=== PATIENT | male | born 1985 | race Caucasian/White ===

== ENCOUNTER → 2016-06-21 | Outpatient (CLI) | payer OTHER ==
[2016-06-21 11:43] LABS: CHLORIDE,CL 105 mmol/L (98-110); SODIUM,NA 139 mmol/L (136-146)
== END | disposition home or self-care (01) ==
LOC: MW.CHFP 11:04
PROVIDERS: ATTEND Family Medicine
DX: Z00.00 Encounter for general adult medical examination without abnormal findings (principal); F90.9 Attention-deficit hyperactivity disorder, unspecified type
CPT/HCPCS: 36415; 80053; 80061; 85027

== ENCOUNTER 2017-06-14 16:04 | Emergency (ER) | payer OTHER, BC ==
[2017-06-14] MEDS ORDERED: Ketorolac 60 MG/2 ML SDV IM ONE (16:27)
--- NOTE | 2017-06-14 16:29 | EDM.PDOC ---
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 Past medical history: As per history of present illness and as reviewed below otherwise noncontributory. Surgical history: As per history of present illness and as reviewed below otherwise noncontributory. Social history: No reported history of drug or alcohol abuse. Family history: As per history of present illness and as reviewed below otherwise noncontributory. Physical exam: Alert and oriented gentleman answering questions appropriately in full sentences without any shortness of breath HEENT: Atraumatic, normocehpalic, pupils reactive, negative for conjunctival pallor or scleral icterus, mucous membranes moist, throat clear, neck supple, nontender, trachea midline. Lungs: Clear to auscultation, breath sounds equal bilaterally, chest non tender. Heart: S1S2, regular, negative for clicks, rubs, or JVD. Abdomen: Soft, nondistended, nontender. Negative for masses or hepatossplenmegaly. Negative for costovertebral tenderness. Pelvis: Stable nontender. Genitourinary: Deferred. Rectal: Deferred Extremities: traumatic, edema noted to the anterior surface at the shoulder. No pain with manipulation and palpation posterior shoulder or to the deltoid. Exquisite tenderness noted with palpation anteriorly. Pulses intact radially. negative for cords or calf pain. Patient can raise his left arm about 10 anteriorly, can raise his arm about 5 to the side. No pain posteriorly to the left shoulder Neurovascular unremarkable. Neuro: Awake, alert, oriented. Cranial nerves II through XII unremarkable. Cerebellum unremarkable. Motor and sensory unremarkable throughout. Exam nonfocal. No fractures or dislocation noted on x-rays Diagnostics: []X-ray left shoulder Therapeutics: [] Toradol IM Impression: []Injury to left shoulder Plan: []Sling to his left arm Diclofenac twice a day Follow-up with orthopedics next week Definitive disposition and diagnosis as appropriate pending reevaluation and review of above. Onset: Today, Sudden Duration: Hour(s):, Getting Worse Location: Reports: Upper Extremity, Left left shoulder Pain Score (Numeric/FACES): 8 - Related Data Allergies Allergy/AdvReac Type Severity Reaction Status Date / Time amoxicillin Allergy Cannot Verified 06/14/17 16:17 Remember Home Meds: Home Meds Amphetamine/Dextroamphetamine [Adderall] 20 mg PO BID 06/14/17 [History] Diclofenac Sodium [IJD: Diclofenac Sodium] 75 mg PO .TWICE DAILY W MEALS #20 tab.ec 06/14/17 [Rx] Past Medical History Psychiatric History: Reports: ADHD, Anxiety, Depression - Past Surgical History Musculoskeletal Surgical History: Reports: Shoulder Surgery Social & Family History - Family History Family Medical History: Noncontributory - Tobacco Use Smoking Status *Q: Current Every Day Smoker Years of Tobacco use: 15 Packs/Tins Daily: 1 Second Hand Smoke Exposure: Yes - Caffeine Use Caffeine Use: Reports: Coffee, Energy Drinks, Soda - Alcohol Use Days Per Week of Alcohol Use: 7 Number of Drinks Per Day: 3 Total Drinks Per Week: 21 - Recreational Drug Use Recreational Drug Use: No Review of Systems - Review of Systems Review Of Systems: ROS reveals no pertinent complaints other than HPI. ED EXAM, GENERAL - Physical Exam Exam: See Below (See dictation) Course - Vital Signs Last Recorded V/S: Last Vital Signs Temp 37.3 C 06/14/17 16:15 Pulse 106 H 06/14/17 16:15 Resp 18 06/14/17 16:15 BP 117/78 06/14/17 16:15 Pulse Ox 97 06/14/17 16:15 - Orders/Labs/Meds Orders: Active Orders 24 hr Category Date Time Status Cooling Warming Measures [RC] ASDIRECTED Care 06/14/17 17:24 Active Shoulder Comp Lt [CR] Stat Exams 06/14/17 16:27 Taken Ice Pack [Ice Therapy] [OM.PC] Stat Oth 06/14/17 17:24 Ordered Meds: Medications Discontinued Medications Generic Name Dose Route Start Last Admin Trade Name Freq PRN Reason Stop Dose Admin Ketorolac Tromethamine 60 mg 06/14/17 16:27 06/14/17 16:44 Toradol IM 06/14/17 16:28 60 mg ONETIME ONE Administration Departure - Departure Time of Disposition: 17:51 Disposition: Home, Self-Care 01 Condition: Good Clinical Impression: Injury of left shoulder Qualifiers: Encounter type: initial encounter Qualified Code(s): S49.92XA - Unspecified injury of left shoulder and upper arm, initial encounter - Discharge Information Prescriptions: Diclofenac Sodium [IJD: Diclofenac Sodium] 75 mg PO .TWICE DAILY W MEALS #20 tab.ec Referrals: PCP,None [Primary Care Provider] - Sonja Blount MD [Physician] - Forms: ED Department Discharge Additional Instructions: The following information is given to patients seen in the emergency department who are being discharged to home. This information is to outline your options for follow-up care. We provide all patients seen in our emergency department with a follow-up referral. The need for follow-up, as well as the timing and circumstances, are variable depending upon the specifics of your emergency department visit. If you don't have a primary care physician on staff, we will provide you with a referral. We always advise you to contact your personal physician following an emergency department visit to inform them of the circumstance of the visit and for follow-up with them and/or the need for any referrals to a consulting specialist. The emergency department will also refer you to a specialist when appropriate. This referral assures that you have the opportunity for followup care with a specialist. All of these measure are taken in an effort to provide you with optimal care, which includes your followup. Under all circumstances we always encourage you to contact your private physician who remains a resource for coordinating your care. When calling for followup care, please make the office aware that this follow-up is from your recent emergency room visit. If for any reason you are refused follow-up, please contact the [facility] emergency department at and asked to speak to the emergency department charge nurse. Diclofenac has been given for your injury Return to ER as directed Follow-up with orthopedics next week [facility] [address], [address] [place] [address] - My Orders Last 24 Hours: My Active Orders 06/14/17 16:27 Shoulder Comp Lt [CR] Stat 06/14/17 17:24 Cooling Warming Measures [RC] ASDIRECTED Ice Pack [Ice Therapy] [OM.PC] Stat - Assessment/Plan Last 24 Hours: My Active Orders 06/14/17 16:27 Shoulder Comp Lt [CR] Stat 06/14/17 17:24 Cooling Warming Measures [RC] ASDIRECTED Ice Pack [Ice Therapy] [OM.PC] Stat
[2017-06-14 18:07] VITALS: BP 153/79
--- NOTE | 2017-06-17 09:51 | CR ---
EXAM DATE: 06/14/17 PATIENT'S AGE: 31 Patient: SHAWNEE LUCIO Facility: [place], [place] Site . Site : 1985 Study: XRay Shoulder Left [id number]/20/2018 5:16:53 PM Ordering Physician: Doctor Burns Final Report: HISTORY: Shoulder pain without injury or trauma. FINDINGS: Three views of the left shoulder demonstrates maintenance of the AC joint and glenohumeral joint. No soft tissue calcification, fracture or dislocation seen. IMPRESSION: No bony abnormality within the left shoulder. Dictated by Kiley Copelnad MD @ 06/14/2017 6:02:20 PM Dictated by: Kiley Copeland MD @ 06/14/2017 18:02:25 (Electronic Signature) Report Signed by Proxy. HARI
== END 2017-06-14 18:01 | disposition home or self-care (01) ==
LOC: MW.ED 16:04
DX: S49.92XA Unspecified injury of left shoulder and upper arm, initial encounter (principal); F17.210 Nicotine dependence, cigarettes, uncomplicated; Z88.1 Allergy status to other antibiotic agents; X58.XXXA Exposure to other specified factors, initial encounter; Y99.0 Civilian activity done for income or pay
CPT/HCPCS: 73030; 96372; 99283; A4566; J1885

== ENCOUNTER 2017-09-07 01:51 | Emergency (ER) | payer SELFPAY ==
[2017-09-07] MEDS ORDERED: Lidocaine 1% with EPINEPHrine 1:100,000 10 ML MDV INJECT ONE (01:56)
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
[2017-09-07] MEDS ORDERED: Bacitracin Oint 1 GM U/D Packet TOP ONE (02:14)
[2017-09-07 02:37] VITALS: BP 128/84
== END 2017-09-07 02:35 | disposition home or self-care (01) ==
LOC: MW.ED 01:51
DX: S01.112A Laceration without foreign body of left eyelid and periocular area, initial encounter (principal); S01.21XA Laceration without foreign body of nose, initial encounter; S09.90XA Unspecified injury of head, initial encounter; Z88.1 Allergy status to other antibiotic agents; Z79.899 Other long term (current) drug therapy; Y04.2XXA Assault by strike against or bumped into by another person, initial encounter
CPT/HCPCS: 99283

== ENCOUNTER 2018-06-12 02:12 | Emergency (ER) | payer BC ==
[2018-06-12] MEDS ORDERED: Tetracaine HCl/PF 0.5% 4 ML Bottle EYELF ONE (02:32)
[2018-06-12] MEDS ORDERED: Erythromycin Base 0.5% Ophth Oint 1 GM Tube EYELF ONE (02:46)
--- NOTE | 2018-06-12 02:48 | EDM.PDOC ---
ED HPI GENERAL MEDICAL PROBLEM - General Chief Complaint: ENT Problem Stated Complaint: SOMETHING IN LT EYE Time Seen by Provider: 06/12/18 02:44 - History of Present Illness INITIAL COMMENTS - FREE TEXT/NARRATIVE: HISTORY AND PHYSICAL: History of present illness: Patient's a 32-year-old white male presents with concern of irritation in his left eye has been since tonight he felt there may been some pain in that he did flush his eye. Review of systems: As per history of present illness and below otherwise all systems reviewed and negative. Past medical history: As per history of present illness and as reviewed below otherwise noncontributory. Surgical history: As per history of present illness and as reviewed below otherwise noncontributory. Social history: No reported history of drug or alcohol abuse. Family history: As per history of present illness and as reviewed below otherwise noncontributory. Physical exam: HEENT: Atraumatic, normocephalic, pupils reactive, injected conjunctiva anterior chamber clear lid eversion informed by search was negative corneal staining negative for evidence of corneal abrasion mucous membranes moist, throat clear, neck supple, nontender, trachea midline. Lungs: Clear to auscultation, breath sounds equal bilaterally, chest nontender. Heart: S1S2, regular, negative for clicks, rubs, or JVD. Abdomen: Soft, nondistended, nontender. Negative for masses or hepatosplenomegaly. Negative for costovertebral tenderness. Pelvis: Stable nontender. Genitourinary: Deferred. Rectal: Deferred. Extremities: Atraumatic, negative for cords or calf pain. Neurovascular unremarkable. Neuro: Awake, alert, oriented. Cranial nerves II through XII unremarkable. Cerebellum unremarkable. Motor and sensory unremarkable throughout. Exam nonfocal. Diagnostics: Corneal staining Therapeutics: Proparacaine, irrigation erythromycin ophthalmic ointment Impression: #1 conjunctivitis left eye Definitive disposition and diagnosis as appropriate pending reevaluation and review of above. left eye Pain Score (Numeric/FACES): 9 - Related Data Allergies Allergy/AdvReac Type Severity Reaction Status Date / Time amoxicillin Allergy Cannot Verified 12/27/17 16:11 Remember Penicillins Allergy Cannot Verified 06/12/18 02:28 Remember Home Meds: Home Meds Amphetamine/Dextroamphetamine [Adderall] 40 mg PO DAILY 06/14/17 [History] Past Medical History Musculoskeletal History: Reports: Fracture Other Musculoskeletal History: fx pinky finger, left Psychiatric History: Reports: ADHD - Infectious Disease History Infectious Disease History: Reports: Chicken Pox - Past Surgical History Head Surgeries/Procedures: Reports: None Musculoskeletal Surgical History: Reports: Shoulder Surgery Other Musculoskeletal Surgeries/Procedures:: left shoulder surgery Social & Family History - Family History Family Medical History: Noncontributory - Tobacco Use Smoking Status *Q: Current Every Day Smoker Years of Tobacco use: 15 Packs/Tins Daily: 1.5 - Caffeine Use Caffeine Use: Reports: Coffee, Energy Drinks, Soda - Recreational Drug Use Recreational Drug Use: No ED ROS GENERAL - Review of Systems Review Of Systems: ROS reveals no pertinent complaints other than HPI. ED EXAM, GENERAL - Physical Exam Exam: See Below (See dictation) Course - Vital Signs Last Recorded V/S: Last Vital Signs Temp 35.8 C 06/12/18 02:23 Pulse 91 06/12/18 02:23 Resp 18 06/12/18 02:23 BP 117/69 06/12/18 02:23 Pulse Ox 98 06/12/18 02:23 - Orders/Labs/Meds Meds: Medications Discontinued Medications Generic Name Dose Route Start Last Admin Trade Name Freq PRN Reason Stop Dose Admin Tetracaine HCl 1 ml 06/12/18 02:32 06/12/18 02:38 Tetracaine 0.5% Steri-Unit Belen EYELF 06/12/18 02:33 1 ml ASDIRECTED ONE Administration Departure - Departure Time of Disposition: 02:47 Disposition: Home, Self-Care 01 Condition: Good Clinical Impression: Conjunctivitis - Discharge Information Referrals: PCP,None [Primary Care Provider] - Additional Instructions: The following information is given to patients seen in the emergency department who are being discharged to home. This information is to outline your options for follow-up care. We provide all patients seen in our emergency department with a follow-up referral. The need for follow-up, as well as the timing and circumstances, are variable depending upon the specifics of your emergency department visit. If you don't have a primary care physician on staff, we will provide you with a referral. We always advise you to contact your personal physician following an emergency department visit to inform them of the circumstance of the visit and for follow-up with them and/or the need for any referrals to a consulting specialist. The emergency department will also refer you to a specialist when appropriate. This referral assures that you have the opportunity for followup care with a specialist. All of these measure are taken in an effort to provide you with optimal care, which includes your followup. Under all circumstances we always encourage you to contact your private physician who remains a resource for coordinating your care. When calling for followup care, please make the office aware that this follow-up is from your recent emergency room visit. If for any reason you are refused follow-up, please contact the [facility] emergency department at and asked to speak to the emergency department charge nurse. [facility] [address] [place] [address] Erythromycin ophthalmic ointment as directed follow-up ophthalmology clinic above as needed as discussed and return as needed as discussed
[2018-06-12 03:06] VITALS: BP 101/70
== END 2018-06-12 03:00 | disposition home or self-care (01) ==
LOC: MW.ED 02:12
DX: H10.9 Unspecified conjunctivitis (principal); F17.210 Nicotine dependence, cigarettes, uncomplicated; F90.9 Attention-deficit hyperactivity disorder, unspecified type; Z88.1 Allergy status to other antibiotic agents; Z88.0 Allergy status to penicillin; Z79.899 Other long term (current) drug therapy
CPT/HCPCS: 99282; A9270; 99283

== ENCOUNTER 2018-06-13 13:42 | Emergency (ER) | payer BC ==
[2018-06-13 14:12] VITALS: BP 120/64
--- NOTE | 2018-06-13 14:18 | EDM.PDOC ---
ED HPI GENERAL MEDICAL PROBLEM - General Chief Complaint: Eye Problems Stated Complaint: LEFT EYE PAIN Time Seen by Provider: 06/13/18 14:09 - History of Present Illness INITIAL COMMENTS - FREE TEXT/NARRATIVE: HISTORY AND PHYSICAL: History of present illness: Patient's a 32-year-old white male presents with a concern of left eye irritation he was seen several days prior for same and was treated as conjunctivitis at that time there was no foreign body appreciated he did have fluoresceins stain and did have his lid everted at that time he was seen by myself on return today he is irritation and has corneal foreign body at the 3 o 'clock position. Review of systems: As per history of present illness and below otherwise all systems reviewed and negative. Past medical history: As per history of present illness and as reviewed below otherwise noncontributory. Surgical history: As per history of present illness and as reviewed below otherwise noncontributory. Social history: No reported history of drug or alcohol abuse. Family history: As per history of present illness and as reviewed below otherwise noncontributory. Physical exam: HEENT: Atraumatic, normocephalic, pupils reactive, injected conjunctiva with obvious foreign body times multiple at the 3 o'clock position anterior chamber is clear, mucous membranes moist, throat clear, neck supple, nontender, trachea midline. Lungs: Clear to auscultation, breath sounds equal bilaterally, chest nontender. Heart: S1S2, regular, negative for clicks, rubs, or JVD. Abdomen: Soft, nondistended, nontender. Negative for masses or hepatosplenomegaly. Negative for costovertebral tenderness. Pelvis: Stable nontender. Genitourinary: Deferred. Rectal: Deferred. Extremities: Atraumatic, negative for cords or calf pain. Neurovascular unremarkable. Neuro: Awake, alert, oriented. Cranial nerves II through XII unremarkable. Cerebellum unremarkable. Motor and sensory unremarkable throughout. Exam nonfocal. Diagnostics: Slit lamp exam Therapeutics: tetracaine opth drop Impression: 1 corneal foreign body left eye Definitive disposition and diagnosis as appropriate pending reevaluation and review of above. left eye Pain Score (Numeric/FACES): 8 - Related Data Allergies Allergy/AdvReac Type Severity Reaction Status Date / Time amoxicillin Allergy Cannot Verified 12/27/17 16:11 Remember Penicillins Allergy Cannot Verified 04/18/19 02:28 Remember Home Meds: Home Meds Amphetamine/Dextroamphetamine [Adderall] 40 mg PO DAILY 06/14/17 [History] Past Medical History Musculoskeletal History: Reports: Fracture Other Musculoskeletal History: fx pinky finger, left Psychiatric History: Reports: ADHD - Infectious Disease History Infectious Disease History: Reports: Chicken Pox - Past Surgical History Head Surgeries/Procedures: Reports: None Musculoskeletal Surgical History: Reports: Shoulder Surgery Other Musculoskeletal Surgeries/Procedures:: left shoulder surgery Social & Family History - Family History Family Medical History: Noncontributory - Caffeine Use Caffeine Use: Reports: Coffee, Energy Drinks, Soda ED ROS GENERAL - Review of Systems Review Of Systems: ROS reveals no pertinent complaints other than HPI. ED EXAM GENERAL W FULL EYE - Physical Exam Exam: See Below (See dictation) Course - Vital Signs Last Recorded V/S: Last Vital Signs Temp 36.3 C 06/13/18 14:11 Pulse 115 H 06/13/18 14:11 Resp 14 06/13/18 14:11 BP 120/64 06/13/18 14:11 Pulse Ox 96 06/13/18 14:11 - Orders/Labs/Meds Orders: Active Orders 24 hr Category Date Time Status Proparacaine [Proparacaine 0.5% Ophth Soln] Med 06/13/18 14:30 Active 1 ml EYEBOTH STAT Medication Orders Proparacaine HCl (Proparacaine 0.5% Ophth Soln) 1 ml EYEBOTH STAT ROBERT Meds: Medications Generic Name Dose Route Start Last Admin Trade Name Freq PRN Reason Stop Dose Admin Proparacaine HCl 1 ml 06/13/18 14:30 Proparacaine 0.5% Ophth Soln EYEBOTH STAT ROBERT Discontinued Medications Generic Name Dose Route Start Last Admin Trade Name Freq PRN Reason Stop Dose Admin Tetracaine HCl Confirm 06/13/18 14:20 06/13/18 14:34 Tetracaine 0.5% Steri-Unit Belen Administered 06/13/18 14:21 Not Given Dose 4 ml .ROUTE .STK-MED ONE Tetracaine HCl 4 ml 06/13/18 14:26 Tetracaine 0.5% Steri-Unit Belen EYEBOTH 06/13/18 14:27 ASDIRECTED ONE Departure - Departure Time of Disposition: 15:05 Disposition: Home, Self-Care 01 Condition: Good Clinical Impression: Corneal foreign body - Discharge Information Referrals: PCP,Unknown [Primary Care Provider] - Forms: ED Department Discharge Additional Instructions: The following information is given to patients seen in the emergency department who are being discharged to home. This information is to outline your options for follow-up care. We provide all patients seen in our emergency department with a follow-up referral. The need for follow-up, as well as the timing and circumstances, are variable depending upon the specifics of your emergency department visit. If you don't have a primary care physician on staff, we will provide you with a referral. We always advise you to contact your personal physician following an emergency department visit to inform them of the circumstance of the visit and for follow-up with them and/or the need for any referrals to a consulting specialist. The emergency department will also refer you to a specialist when appropriate. This referral assures that you have the opportunity for followup care with a specialist. All of these measure are taken in an effort to provide you with optimal care, which includes your followup. Under all circumstances we always encourage you to contact your private physician who remains a resource for coordinating your care. When calling for followup care, please make the office aware that this follow-up is from your recent emergency room visit. If for any reason you are refused follow-up, please contact the [facility] emergency department at and asked to speak to the emergency department charge nurse. [facility] [address] [place] [id number] Tobrex drops as prescribed Bendena as prescribed follow-up ophthalmology clinic Saturday as discussed and return as needed as discussed - My Orders Last 24 Hours: My Active Orders 06/13/18 14:30 Proparacaine [Proparacaine 0.5% Ophth Soln] 1 ml EYEBOTH STAT - Assessment/Plan Last 24 Hours: My Active Orders 06/13/18 14:30 Proparacaine [Proparacaine 0.5% Ophth Soln] 1 ml EYEBOTH STAT
[2018-06-13] MEDS ORDERED: Tetracaine HCl/PF 0.5% 4 ML Bottle ONE (14:20)
[2018-06-13] MEDS ORDERED: Tetracaine HCl/PF 0.5% 4 ML Bottle EYEBOTH ONE (14:26)
[2018-06-13] MEDS ORDERED: Proparacaine 0.5% Ophth Soln 15 ML Bottle EYEBOTH SCH (14:30)
== END 2018-06-13 15:13 | disposition home or self-care (01) ==
LOC: MW.ED 13:42
DX: T15.02XA Foreign body in cornea, left eye, initial encounter (principal); F90.9 Attention-deficit hyperactivity disorder, unspecified type; Z88.1 Allergy status to other antibiotic agents; Z88.0 Allergy status to penicillin
CPT/HCPCS: 99283